=== PATIENT | male | born 1935 | race Caucasian/White ===

== ENCOUNTER 2022-07-14 19:11 | Emergency (ER) | payer MEDICAID, OTHER ==
[~2022-07-14] VITALS: Ht 170.2 cm; Wt 73.0 kg
[2022-07-14 21:16] LABS: BASOPHILS % 0.9 % (0.0-2.0); HEMATOCRIT. 33.8 % (42.0-52.0); HEMOGLOBIN. 11.2 g/dL (14.0-18.0); LYMPHOCYTES % 22.9 % (20.0-50.0); MEAN CORPUSCULAR HEMOGLOBIN 30.5 pg (28.0-32.0); MEAN CORPUSCULAR VOLUME 92.2 fL (80.0-94.0); MEAN PLATELET VOLUME 7.9 fl (7.4-10.4); MONOCYTES % 8.5 % (2.0-8.0); NEUTROPHILS % 67.7 % (40.0-76.0); PLATELET 167 x1000/uL (130-400); RED BLOOD CELL COUNT 3.67 mill/uL (4.7-6.1); RED CELL DISTRIBUTION WIDTH 15.3 % (11.6-14.6)
[2022-07-15] MEDS ORDERED: PENI500T MT (00:19)
[2022-07-15 00:55] VITALS: BP 121/84
[2022-07-16 03:05] LABS: CHLORIDE 108 mEq/L (98-107)
== END 2022-07-15 01:09 | disposition home or self-care (01) ==
LOC: ER 19:11
DX: J02.9 Acute pharyngitis, unspecified (principal); R05.8 Other specified cough; H91.90 Unspecified hearing loss, unspecified ear; Z95.0 Presence of cardiac pacemaker
CPT/HCPCS: 36415; 70360; 71045; 80053; 83605; 85025; 93005; 99285